=== PATIENT | male | born 2000 | race Hispanic/Latino ===

== ENCOUNTER 2019-11-28 17:31 | Emergency (ER) | payer OTHER ==
--- NOTE | 2019-11-28 18:27 | RAD REPORT ---
EXAM DESCRIPTION: CT - Head Brain Wo Cont - 11/28/2019 6:09 pm CLINICAL HISTORY: Headache COMPARISON: None. TECHNIQUE: Computed axial tomography of the head was obtained. IV contrast was not requested. All CT scans are performed using dose optimization technique as appropriate and may include automated exposure control or mA/KV adjustment according to patient size. FINDINGS: An intracranial bleed is not seen . The ventricles are normal in caliber. No extra-axial fluid collection is noted. Fluid within the sinuses/ mastoids is not seen. IMPRESSION: No acute intracranial abnormality is seen. If patient's symptoms persist MRI of the bra in would be recommended.
--- NOTE | 2019-11-28 18:33 | ER ---
Nurse's Notes [facility] Name: Ye Hicks Age: 19 yrs Sex: Male : 2000 Arrival Date: 11/28/2019 Time: 17:35 Bed 5 Private MD: Diagnosis: Headache;Hypertension Presentation: 11/28 17:36 Presenting complaint: Squeezing headache and blurred vision x 1 week. Denies hb photophobia/N/V/fever. Transition of care: patient was not received from another setting of care. Onset of symptoms was November 22, 2019. Risk Assessment: Do you want to hurt yourself or someone else? Patient reports no desire to harm self or others. Care prior to arrival: None. 17:36 Method Of Arrival: Ambulatory hb 17:36 Acuity: LOLY 3 hb 18:52 Initial Sepsis Screen: Does the patient meet any 2 criteria? No. Patient's initial bp sepsis screen is negative. Does the patient have a suspected source of infection? No. Patient's initial sepsis screen is negative. Triage Assessment: 17:40 Headache History: The patient has had previous headaches and this one is more severe bp than previous episodes. General: Appears in no apparent distress. comfortable, Behavior is cooperative, appropriate for age, anxious. Pain: Complains of pain in head Pain currently is 6 out of 10 on a pain scale. Pain began 2-3 days ago. Also complains of no other associated symptoms. EENT: No deficits noted. Neuro: No deficits noted. Cardiovascular: No deficits noted. Respiratory: No deficits noted. GI: No signs and/or symptoms were reported involving the gastrointestinal system. : No signs and/or symptoms were reported regarding the genitourinary system. Derm: No deficits noted. Musculoskeletal: No deficits noted. Historical: - Allergies: 17:37 No Known Allergies; hb - Home Meds: 17:37 None [Active]; hb - PMHx: 17:37 None; hb - PSHx: 17:37 Tonsillectomy; Ear Tubes; hb - Immunization history:: Adult Immunizations up to date. - Coronavirus screen:: The patient has NOT traveled to [place], [place], or [place] in the past 14 days. The patient has NOT had contact with known/suspected case of Coronavirus? Proceed with normal triage procedures. - Social history:: Smoking status: Patient denies any tobacco usage or history of. - Family history:: not pertinent. - Ebola Screening: : No symptoms or risks identified at this time. - Hospitalizations: : No recent hospitalization is reported. Screenin:47 Abuse screen: Denies threats or abuse. Denies injuries from another. Nutritional aj1 screening: No deficits noted. Tuberculosis screening: No symptoms or risk factors identified. 18:01 Fall Risk None identified. bp Assessment: 17:47 General: Appears in no apparent distress. comfortable, Behavior is calm, cooperative, aj1 appropriate for age. Pain: Complains of pain in forehead, left side of the back of head, left side of forehead, left temporal area, right side of the back of head, right temporal area and right side of forehead. Neuro: Level of Consciousness is awake, alert, obeys commands, Oriented to person, place, time, situation, Medical Collections Specialist are equal bilaterally Moves all extremities. Full function Gait is steady, Speech is normal, Facial symmetry appears normal, Reports blurred vision headache. Cardiovascular: Patient's skin is warm and dry. Respiratory: Airway is patent Respiratory effort is even, unlabored, Respiratory pattern is regular, symmetrical. GI: No signs and/or symptoms were reported involving the gastrointestinal system. : No signs and/or symptoms were reported regarding the genitourinary system. EENT: No signs and/or symptoms were reported regarding the EENT system. Derm: No signs and/or symptoms reported regarding the dermatologic system. Skin is pink, warm \T\ dry. normal. Musculoskeletal: No signs and/or symptoms reported regarding the musculoskeletal system. Circulation, motion, and sensation intact. 18:20 Reassessment: PT RETURNED FROM CT. ALL CURRENT ORDERS COMPLETE. NO S/S ACUTE DISTRESS. bp 18:51 Reassessment: PT D/C HOME AMBULATORY, DX WITH HYPERTENSION AND HEADACHE. bp Vital Signs: 17:37 BP 164 / 89; Pulse 82; Resp 16; Temp 97.7(TE); Pulse Ox 99% on R/A; Weight 136.08 kg; hb Height 5 ft. 10 in. (177.80 cm); Pain 3/10; 18:18 BP 142 / 77 LA Sitting (man/lg); Pulse 89; Pulse Ox 100% ; jp3 18:50 BP 137 / 77; Pulse 82; Resp 16; Temp 98; Pulse Ox 98% ; bp 17:37 Body Mass Index 43.05 (136.08 kg, 177.80 cm) hb Kelechi Coma Score: 18:30 Eye Response: spontaneous(4). Verbal Response: oriented(5). Motor Response: obeys rn commands(6). Total: 15. ED Course: 17:35 Patient arrived in ED. ag5 17:37 Triage completed. hb 17:37 Arm band placed on. hb 17:40 Shannen James RN is Primary Nurse. aj1 17:45 Judson Redd MD is Attending Physician. rn 17:47 Patient has correct armband on for positive identification. aj1 17:47 No provider procedures requiring assistance completed. aj1 18:00 Primary Nurse role handed off by Shannen James RN bp 18:00 Mihai Garza RN is Primary Nurse. bp 18:01 Patient has correct armband on for positive identification. Bed in low position. Call bp light in reach. Side rails up X2. 18:09 CT completed. Patient tolerated procedure well. Patient moved back from CT. mw3 18:21 CT Head Brain wo Cont In Process Unspecified. EDMS 18:51 Patient did not have IV access during this emergency room visit. bp Administered Medications: No medications were administered Outcome: 18:31 Discharge ordered by . rn 18:51 Discharged to home ambulatory. bp 18:51 Condition: stable 18:51 Discharge instructions given to patient, Instructed on discharge instructions, follow up and referral plans. Demonstrated understanding of instructions, follow-up care. 18:53 Patient left the ED. bp Signatures: Dispatcher [employer] EDRI Shannen James RN RN [facility] Judson Redd MD MD rn Baxter, Heather, RN RN Mihai Garza, Charisse Adams RN mw3 Manuel Austin jp3 Myah Chisholm ag5
--- NOTE | 2019-11-28 18:33 | EDPHYS ---
Physician Documentation [facility] Name: Ye Hicks Age: 19 yrs Sex: Male : 2000 Arrival Date: 11/28/2019 Time: 17:35 Bed 5 Private MD: ED Physician Judson Redd HPI: 11/28 18:04 This 19 yrs old Male presents to ER via Ambulatory with complaints of rn Headache, Blurred Vision. 18:04 The patient complains of pain to the top of head. The patient describes the headache as rn aching. Onset: The symptoms/episode began/occurred 1 week(s) ago. Associated signs and symptoms: Pertinent negatives: altered mental status, fever, neck stiffness, Photophobia rash, vision loss, vomiting, weakness, vertigo. Severity of symptoms: At its worst the pain was mild, in the emergency department the pain is unchanged. Headache History: Denies prior headaches. The patient has not experienced similar symptoms in the past. Reports headache and high blood pressure for a week or more, no trauma, no focal neuro complaints, no vomiting, no vision changes, no famhx of aneurysm. Reports headache only 3/10, and has been told has high blood pressure in past, but never started on meds. . Historical: - Allergies: 17:37 No Known Allergies; hb - Home Meds: 17:37 None [Active]; hb - PMHx: 17:37 None; hb - PSHx: 17:37 Tonsillectomy; Ear Tubes; hb - Immunization history:: Adult Immunizations up to date. - Coronavirus screen:: The patient has NOT traveled to [place], [place], or [place] in the past 14 days. The patient has NOT had contact with known/suspected case of Coronavirus? Proceed with normal triage procedures. - Social history:: Smoking status: Patient denies any tobacco usage or history of. - Family history:: not pertinent. - Ebola Screening: : No symptoms or risks identified at this time. - Hospitalizations: : No recent hospitalization is reported. ROS: 18:04 Constitutional: Negative for fever, chills, and weight loss, Eyes: Negative for injury, rn pain, redness, and discharge, Neck: Negative for injury, pain, and swelling, Cardiovascular: Negative for chest pain, palpitations, and edema, Respiratory: Negative for shortness of breath, cough, wheezing, and pleuritic chest pain, Abdomen/GI: Negative for abdominal pain, nausea, vomiting, diarrhea, and constipation, Back: Negative for injury and pain, MS/Extremity: Negative for injury and deformity, Skin: Negative for injury, rash, and discoloration, Neuro: Negative for weakness, numbness, tingling, and seizure. Exam: 18:04 Constitutional: This is a well developed, well nourished patient who is awake, alert, rn and in no acute distress. Ambulatory to room without difficulty. Head/Face: Normocephalic, atraumatic. Eyes: Pupils equal round and reactive to light, extra-ocular motions intact. Lids and lashes normal. Conjunctiva and sclera are non-icteric and not injected. Cornea within normal limits. Periorbital areas with no swelling, redness, or edema. Neck: Trachea midline, no thyromegaly or masses palpated, and no cervical lymphadenopathy. Supple, full range of motion without nuchal rigidity, or vertebral point tenderness. No Meningismus. Cardiovascular: Regular rate and rhythm. No pulse deficits. Respiratory: No increased work of breathing, no retractions or nasal flaring. MS/ Extremity: Pulses equal, no cyanosis. Neurovascular intact. Full, normal range of motion. Equal circumference. Neuro: Awake and alert, GCS 15, oriented to person, place, time, and situation. Cranial nerves II-XII grossly intact. Motor strength 5/5 in all extremities. Sensory grossly intact. Cerebellar exam normal. Normal gait. Vital Signs: 17:37 BP 164 / 89; Pulse 82; Resp 16; Temp 97.7(TE); Pulse Ox 99% on R/A; Weight 136.08 kg; hb Height 5 ft. 10 in. (177.80 cm); Pain 3/10; 18:18 BP 142 / 77 LA Sitting (man/lg); Pulse 89; Pulse Ox 100% ; jp3 18:50 BP 137 / 77; Pulse 82; Resp 16; Temp 98; Pulse Ox 98% ; bp 17:37 Body Mass Index 43.05 (136.08 kg, 177.80 cm) hb Kelechi Coma Score: 18:30 Eye Response: spontaneous(4). Verbal Response: oriented(5). Motor Response: obeys rn commands(6). Total: 15. MDM: 17:45 Patient medically screened. rn 18:30 Differential diagnosis: hypertensive headache, migraine, tension headache, vasomotor rn headache. Data reviewed: vital signs, nurses notes, radiologic studies, CT scan, and as a result, I will discharge patient. Counseling: I had a detailed discussion with the patient and/or guardian regarding: the historical points, exam findings, and any diagnostic results supporting the discharge/admit diagnosis, radiology results, the need for outpatient follow up, to return to the emergency department if symptoms worsen or persist or if there are any questions or concerns that arise at home. Special discussion: I discussed with the patient/guardian in detail that at this point there is no indication for admission to the hospital. It is understood, however, that if the symptoms persist or worsen the patient needs to return immediately for re-evaluation. Based on the history and exam findings, there is no indication for further emergent testing or inpatient evaluation. I discussed with the patient/guardian the need to see the primary care provider for further evaluation of the symptoms. ED course: Ct head neg, improved BP without therapy, will dc home with instructions to monitor and document BP and f/u with pcp for further management. Return precautions given and understood. . 11/28 17:50 Order name: CT Head Brain wo Cont; Complete Time: 18:30 eb Administered Medications: No medications were administered Disposition: 11/28/19 18:31 Discharged to Home. Impression: Headache, Hypertension. - Condition is Stable. - Discharge Instructions: General Headache Without Cause, Hypertension. - Medication Reconciliation Form, Thank You Letter, Antibiotic Education, Prescription Opioid Use form. - Follow up: Private Physician; When: As needed; Reason: Recheck today's complaints, Re-evaluation by your physician. - Problem is an ongoing problem. - Symptoms have improved. Signatures: Dispatcher [employer] EDMS Judson Redd MD MD rn Baxter, Heather, RN RN hb Peltier, Brian, RN RN bp Corrections: (The following items were deleted from the chart) 18:53 18:31 11/28/2019 18:31 Discharged to Home. Impression: Headache; Hypertension. bp Condition is Stable. Forms are Medication Reconciliation Form, Thank You Letter, Antibiotic Education, Prescription Opioid Use. Follow up: Private Physician; When: As needed; Reason: Recheck today's complaints, Re-evaluation by your physician. Problem is an ongoing problem. Symptoms have improved. rn
[2019-11-28 19:03] VITALS: BP 137/77; TEMP 98; O2SAT 98
== END 2019-11-28 18:53 | disposition home or self-care (01) ==
LOC: ER 17:31
DX: I10 Essential (primary) hypertension (principal)
CPT/HCPCS: 70450; 99284

== ENCOUNTER 2019-12-21 16:06 | Emergency (ER) | payer OTHER ==
--- NOTE | 2019-12-21 17:18 | RAD REPORT ---
EXAM DESCRIPTION: RAD - Chest Pa And Lat (2 Views) - 12/21/2019 5:11 pm CLINICAL HISTORY: shoulder pain, right shoulder pain, chest pain COMPARISON: No comparisons TECHNIQUE: Frontal and lateral views of the chest were obtained. FINDINGS: The lungs are clear. Heart size is normal and central vasculature is within normal limit s. No pleural effusion or pneumothorax seen. No acute bony finding noted. No aortic abnormality. IMPRESSION: No acute cardiopulmonary process.
--- NOTE | 2019-12-21 19:02 | RAD REPORT ---
EXAM DESCRIPTION: CT - Chest For Pe Angio - 12/21/2019 6:36 pm CLINICAL HISTORY: shoulder pain on inspiration COMPARISON: Chest Pa And Lat (2 Views) dated 12/21/2019 TECHNIQUE: Dynamically enhanced 3 mm thick images of the chest were obtained during administration o f approximately 150mL Isovue 370 IV contrast. Coronal and oblique MIP reconstruction images were gene rated and reviewed. Exam utilizes a protocol to evaluate the pulmonary arterial tree. All CT scans are performed using dose optimization technique as appropriate and may include automated exposure control or mA/KV adjustment according to patient size. FINDINGS: No pulmonary emboli are identified. The aorta as imaged shows no acute or suspicious finding. No pericardial thickening or effusion. No infiltrate or mass in the lung parenchyma. No pleural effusion or pleural thickening. No mediastinal or hilar suspicious masses. No chest wall masses or abnormal axillary lymphadenopathy. IMPRESSION: No pulmonary emboli identified. No other significant or suspicious findings.
--- NOTE | 2019-12-21 19:13 | ER ---
Nurse's Notes [facility] Name: Ye Hicks Age: 19 yrs Sex: Male : 2000 Arrival Date: 12/21/2019 Time: 16:08 Bed 14 Private MD: Sunny Becerra Diagnosis: Pain in right shoulder Presentation: 12/20 16:14 Chief complaint: Patient states: R shoulder pain upon deep breathing started last ca1 night. Denies injuries to the R shoulder. Denies cough. 16:28 Coronavirus screen: The patient has NOT traveled to [place] in the past 14 days. The ca1 patient has NOT had contact with known and/or suspected case of Coronavirus. Ebola Screen: Patient negative for fever greater than or equal to 101.5 degrees Fahrenheit, and additional compatible Ebola Virus Disease symptoms Patient denies exposure to infectious person. Patient denies travel to an Ebola-affected area in the 21 days before illness onset. No symptoms or risks identified at this time. Initial Sepsis Screen: Does the patient meet any 2 criteria? No. Patient's initial sepsis screen is negative. Does the patient have a suspected source of infection? No. Patient's initial sepsis screen is negative. Risk Assessment: Do you want to hurt yourself or someone else? Patient reports no desire to harm self or others. 16:28 Method Of Arrival: Ambulatory ca1 16:28 Acuity: LOLY 4 ca1 19:00 Onset of symptoms was December 20, 2019. Triage Assessment: 16:29 General: Appears in no apparent distress. comfortable, Behavior is calm, cooperative, ca1 appropriate for age. Pain: Complains of pain in anterior aspect of right shoulder. Neuro: Level of Consciousness is awake, alert, obeys commands, Oriented to person, place, time, situation, Appropriate for age. Historical: - Allergies: 16:29 No Known Allergies; ca1 - Home Meds: 16:29 None [Active]; ca1 - PMHx: 16:29 None; ca1 - PSHx: 16:29 Tonsillectomy; Ear Tubes; ca1 - Immunization history:: Adult Immunizations up to date, Flu vaccine is not up to date. - Social history:: Smoking status: Patient denies any tobacco usage or history of. Screenin:31 Abuse screen: Denies threats or abuse. Nutritional screening: No deficits noted. em Tuberculosis screening: No symptoms or risk factors identified. Fall Risk None identified. Assessment: 17:40 General: Appears in no apparent distress. comfortable, Behavior is calm, cooperative, em appropriate for age, Denies fever. Pain: Complains of pain in anterior aspect of right shoulder Pain currently is 0 out of 10 on a pain scale. at worst was 2 out of 10 on a pain scale. Neuro: Level of Consciousness is awake, alert, obeys commands, Oriented to person, place, time, situation, Appropriate for age. Cardiovascular: Heart tones S1 S2 present Capillary refill < 3 seconds. Respiratory: Reports pain with respiration since yesterday night Airway is patent Respiratory effort is even, unlabored, Respiratory pattern is regular, symmetrical, Breath sounds are clear bilaterally. Denies cough, shortness of breath. GI: Patient currently denies diarrhea, nausea, vomiting. Derm: Skin is intact, is healthy with good turgor, Skin is pink, warm \T\ dry. Musculoskeletal: Capillary refill < 3 seconds, Range of motion: intact in all extremities. 18:17 Reassessment: called CT and notified no need to wait for labs. em 18:33 Reassessment: Patient appears in no apparent distress at this time. wheeled to CT via em stretcher. 19:10 Reassessment: Patient appears in no apparent distress at this time. Patient and/or wh family updated on plan of care and expected duration. Pain level reassessed. Patient is alert, oriented x 3, equal unlabored respirations, skin warm/dry/pink. Vital Signs: 16:28 BP 135 / 82; Pulse 76; Resp 17 S; Temp 97.6(TE); Pulse Ox 99% on R/A; Weight 136.08 kg ca1 (R); Height 5 ft. 10 in. (177.80 cm) (R); Pain 2/10; 19:15 BP 148 / 88; Pulse 74; Resp 18; Pulse Ox 100% on R/A; wh 16:28 Body Mass Index 43.05 (136.08 kg, 177.80 cm) ca1 ED Course: 16:08 Patient arrived in ED. ag5 16:28 Triage completed. ca1 16:29 Arm band placed on right wrist. ca1 16:36 Heidy Brambila FNP-C [facility]. snw 16:36 Goyo Perez MD is Attending Physician. snw 16:53 Jose Pride, RN is Primary Nurse. em 17:12 Chest Pa And Lat (2 Views) XRAY In Process Unspecified. EDMS 17:27 Radiology exam delayed due to lab results not completed at this time. (BUN/Creatinine) nj IV insertion attempt and/or patient not having appropriate IV at this time. 17:31 Patient has correct armband on for positive identification. Placed in gown. Bed in low em position. Side rails up X2. Adult w/ patient. 17:43 Sunny Becerra MD is Private Physician. 5 17:45 Initial lab(s) drawn, by tx, sent to lab. Inserted saline lock: 20 gauge in right em forearm, using aseptic technique. Blood collected. 17:49 PHCP role handed off by Heidy Brambila FNP-C [facility] 17:49 Marco A Beck PA is PHCP. [facility] 18:36 CT Chest For PE Angio In Process Unspecified. EDAZ 19:13 Sunny Becerra MD is Referral Physician. [facility] 19:36 No provider procedures requiring assistance completed. IV discontinued, intact, wh bleeding controlled, No redness/swelling at site. Administered Medications: No medications were administered Outcome: 19:13 Discharge ordered by MD. [facility] 19:36 Discharged to home ambulatory. 19:36 Condition: stable 19:36 Discharge instructions given to patient, Instructed on discharge instructions, follow up and referral plans. POC Demonstrated understanding of instructions, follow-up care, medications, POC 19:37 Patient left the ED. Signatures: Dispatcher [employer] EDAZ Heidy Brambila FNP-C FNP-Csnw Marco A Beck PA PA Jose Luevano, RN RN Mic Melo Winsy Sarah Montilla RN RN [facility] Myah Chisholm ag5
--- NOTE | 2019-12-21 19:14 | EDPHYS ---
Physician Documentation [facility] Name: Ye Hicks Age: 19 yrs Sex: Male : 2000 Arrival Date: 12/21/2019 Time: 16:08 Bed 14 Private MD: Sunny Becerra ED Physician Goyo Perez HPI: 12/20 17:25 This 19 yrs old Male presents to ER via Ambulatory with complaints of Shoulder snw Pain. 17:25 The patient or guardian complains of pain, that is acute. anterior aspect of right snw shoulder. Context: The problem was sustained at home, resulted from an unknown reason, The patient reports no decreased range of motion. The patient reports no obvious deformity. Onset: The symptoms/episode began/occurred suddenly, last night. Associated signs and symptoms: Pertinent positives: flew out Saturday to [place], back last pm, Pertinent negatives: chest pain, diaphoresis, dyspnea, tingling, recent cough/bronchitis, fever, trauma. Severity of symptoms: At their worst the symptoms were mild, moderate. Treatment prior to arrival includes: no previous treatment. The patient has not experienced similar symptoms in the past. It is unknown whether or not the patient has recently seen a physician. Historical: - Allergies: 16:29 No Known Allergies; ca1 - Home Meds: 16:29 None [Active]; ca1 - PMHx: 16:29 None; ca1 - PSHx: 16:29 Tonsillectomy; Ear Tubes; ca1 - Immunization history:: Adult Immunizations up to date, Flu vaccine is not up to date. - Social history:: Smoking status: Patient denies any tobacco usage or history of. ROS: 17:24 Constitutional: Negative for fever, chills, and weight loss, Eyes: Negative for injury, snw pain, redness, and discharge, ENT: Negative for injury, pain, and discharge, Neck: Negative for injury, pain, and swelling, Cardiovascular: Negative for chest pain, palpitations, and edema, Respiratory: Negative for shortness of breath, cough, wheezing, and pleuritic chest pain, Abdomen/GI: Negative for abdominal pain, nausea, vomiting, diarrhea, and constipation, Back: Negative for injury and pain, : Negative for injury, bleeding, discharge, and swelling, Skin: Negative for injury, rash, and discoloration, Neuro: Negative for headache, weakness, numbness, tingling, and seizure, Psych: Negative for depression, anxiety, suicide ideation, homicidal ideation, and hallucinations. 17:24 MS/extremity: Positive for pain, to right shoulder on inspiration. Exam: 17:24 Constitutional: This is a well developed, well nourished patient who is awake, alert, snw and in no acute distress. Head/Face: Normocephalic, atraumatic. Eyes: Pupils equal round and reactive to light, extra-ocular motions intact. Lids and lashes normal. Conjunctiva and sclera are non-icteric and not injected. Cornea within normal limits. Periorbital areas with no swelling, redness, or edema. ENT: Nares patent. No nasal discharge, no septal abnormalities noted. Tympanic membranes are normal and external auditory canals are clear. Oropharynx with no redness, swelling, or masses, exudates, or evidence of obstruction, uvula midline. Mucous membranes moist. Neck: Trachea midline, no thyromegaly or masses palpated, and no cervical lymphadenopathy. Supple, full range of motion without nuchal rigidity, or vertebral point tenderness. No Meningismus. Chest/axilla: Normal chest wall appearance and motion. Nontender with no deformity. No lesions are appreciated. Cardiovascular: Regular rate and rhythm with a normal S1 and S2. No gallops, murmurs, or rubs. Normal PMI, no JVD. No pulse deficits. Respiratory: Lungs have equal breath sounds bilaterally, clear to auscultation and percussion. No rales, rhonchi or wheezes noted. No increased work of breathing, no retractions or nasal flaring. Abdomen/GI: Soft, non-tender, with normal bowel sounds. No distension or tympany. No guarding or rebound. No evidence of tenderness throughout. Back: No spinal tenderness. No costovertebral tenderness. Full range of motion. Skin: Warm, dry with normal turgor. Normal color with no rashes, no lesions, and no evidence of cellulitis. MS/ Extremity: Pulses equal, no cyanosis. Neurovascular intact. Full, normal range of motion. Neuro: Awake and alert, GCS 15, oriented to person, place, time, and situation. Cranial nerves II-XII grossly intact. Motor strength 5/5 in all extremities. Sensory grossly intact. Cerebellar exam normal. Normal gait. Psych: Awake, alert, with orientation to person, place and time. Behavior, mood, and affect are within normal limits. Vital Signs: 16:28 BP 135 / 82; Pulse 76; Resp 17 S; Temp 97.6(TE); Pulse Ox 99% on R/A; Weight 136.08 kg ca1 (R); Height 5 ft. 10 in. (177.80 cm) (R); Pain 2/10; 19:15 BP 148 / 88; Pulse 74; Resp 18; Pulse Ox 100% on R/A; wh 16:28 Body Mass Index 43.05 (136.08 kg, 177.80 cm) ca1 MDM: 16:46 Patient medically screened. [facility] 17:49 Data reviewed: vital signs, nurses notes. Data interpreted: Pulse oximetry: on room air snw is 99 %. Interpretation: normal. Counseling: I had a detailed discussion with the patient and/or guardian regarding: the historical points, exam findings, and any diagnostic results supporting the discharge/admit diagnosis, the presence of at least one elevated blood pressure reading (>120/80) during this emergency department visit. Transition of care: After a detail discussion of the patient's case, care is transferred to Marco A HEIN. 12/20 17:25 Order name: [place] Screen Profile; Complete Time: 18:36 snw 12/20 16:52 Order name: Chest Pa And Lat (2 Views) XRAY; Complete Time: 17:27 snw 12/20 17:24 Order name: CT Chest For PE Angio; Complete Time: 19:12 snw Administered Medications: No medications were administered Disposition: 12/21 07:25 Co-signature as Attending Physician, Goyo Perez MD I agree with the assessment and [facility] plan of care. Disposition: 12/21/19 19:13 Discharged to Home. Impression: Pain in right shoulder. - Condition is Stable. - Discharge Instructions: Shoulder Pain. - Medication Reconciliation Form, Thank You Letter, Antibiotic Education, Prescription Opioid Use form. - Follow up: Sunny Becerra MD; When: 2 - 3 days; Reason: Recheck today's complaints, Continuance of care, Re-evaluation by your physician. Signatures: Dispatcher [employer] Goyo Marie MD MD cha Therrien, Shelly, TRAVELER CHANGER-C TRAVELER CHANGER-Csnw Marco A Beck PA PA jmm Habalo, Winsy Sarah Montilla RN RN ca1 Corrections: (The following items were deleted from the chart) 12/20 19:37 19:13 12/21/2019 19:13 Discharged to Home. Impression: Pain in right shoulder. Condition is Stable. Forms are Medication Reconciliation Form, Thank You Letter, Antibiotic Education, Prescription Opioid Use. Follow up: Sunny Becerra; When: 2 - 3 days; Reason: Recheck today's complaints, Continuance of care, Re-evaluation by your physician. brandon
[2019-12-21 21:06] VITALS: TEMP 97.6
[2019-12-21 21:07] VITALS: BP 148/88; O2SAT 100
== END 2019-12-21 19:37 | disposition home or self-care (01) ==
LOC: ER 16:06
DX: M25.511 Pain in right shoulder (principal)
CPT/HCPCS: 36415; 86308; 71275; 71046; 99283; Q9967